=== PATIENT | female | born 1955 | race Caucasian/White ===

== ENCOUNTER 2022-10-21 15:27 | Emergency (ER) | payer MEDICARE, OTHER ==
[~2022-10-21] VITALS: Ht 167.7 cm; Wt 97.5 kg
[2022-10-21] MEDS ORDERED: MECLIZINE 25 MG (ANTIVERT) TAB PO STA (15:38)
[2022-10-21] MEDS ORDERED: NS IV 1000 ML 1,000 ML IV STA (15:38)
[2022-10-21] MEDS ORDERED: ONDANSETRON 4 MG/2 ML (SDV) Z0FRAN IVP STA ×2 (15:38→16:45)
--- NOTE | 2022-10-21 15:44 | ED General ---
General Stated Complaint: DIZZY,VOMITING, LOW FEVER Source of Information: Patient, Spouse History of Present Illness Date Seen by Provider: Oct 21, 2022 Time Seen by Provider: 15:24 Initial Comments 67-year-old female presenting with complaints of cough and cold symptoms for over a week. Yesterday around 3 PM when she was leaving work she started having dizziness. She has a headache in the middle of her head along with dizziness. She was able to drive herself home but has felt the dizziness and symptoms have worsened overnight. She had passed out today and vomited when she tried to eat or drink anything. She gets dizzy with any movement of her head. That she moves her head and gets dizzy she also gets nauseated and has thrown up. She states she has had a low-grade fever around 99 Fahrenheit. She did do a home COVID test that was negative. In the last 1 or 2 days she started coughing up mucus from her lungs. She reports that she feels miserable and has generalized body aches. She has been having chills. She denies pain or burning with urination. No diarrhea. After passing out and feeling so bad today she had her drive her from where they live in [facility] to here in [facility], rather than go to ED and hospital in [place], [place]. She reports having a history of Hypertension and takes Lisinopril/HCTZ for that. She denies allergies to medicines and denies other chronic medical problems. Timing/Duration: 24 Hours Severity: Severe Modifying Factors: worse with Movement Associated Systoms: No Chest Pain; Cough; No Diaphoresis; Fever/Chills, Headaches, Loss of Appetite, Malaise, Nausea/Vomiting; No Rash, No Seizure, No Shortness of Air; Syncope, Weakness Allergies and Home Medications Allergies Coded Allergies: No Known Drug Allergies (Unverified , 10/21/22) Patient Home Medication List Home Medication List Reviewed: Yes Amoxicillin/Potassium Clav (Amox Tr-K Clv 875-125 mg Tab) 875 Mg-125 Mg Tablet, 1 EACH PO BID Prescribed by: PEG MUELLER on 10/21/22 1722 Fluticasone Propionate (Flonase Allergy Relief) 50 Mcg/Actuation [place].susp, 2 SPRAY NS DAILY Prescribed by: PEG MUELLER on 10/21/22 1701 Meclizine HCl (Meclizine HCl) 25 Mg Tablet, 25 MG PO TID PRN for DIZZINESS Prescribed by: PEG GOYALRT on 10/21/22 1701 Ondansetron (Ondansetron Odt) 4 Mg Tab.rapdis, 4 MG PO Q6H PRN for NAUSEA/VOMITING Prescribed by: PEG Osorio ENYART on 10/21/22 1722 Review of Systems Review of Systems Constitutional: see HPI, dizziness EENTM: see HPI, nose congestion Respiratory: see HPI, cough Cardiovascular: see HPI; No chest pain Gastrointestinal: see HPI, nausea, vomiting Genitourinary: see HPI; No dysuria Musculoskeletal: see HPI (Generalized body aches) Skin: No rash Psychiatric/Neurological: See HPI, Anxiety, Headache Hematologic/Lymphatic: Denies Blood Clots Past Lxqqiqc-Xvpkci-Bdobeu Hx Past Medical History Surgery/Hospitalization HX: Hypertension Physical Exam Vital Signs Vital Signs - First Documented 10/21/22 15:27 Temp 36.3 Pulse 73 Resp 14 B/P (MAP) 174/76 (108) Pulse Ox 96 O2 Delivery Room Air Capillary Refill : Height, Weight, BMI Height: '" Weight: lbs. oz. kg; BMI Method: General Appearance: Anxious, Obese Eyes: Bilateral Eye PERRL, Bilateral Eye EOMI (Has fatigable nystagmus with lateral gaze bilaterally) HEENT: PERRL/EOMI, TMs Normal, Pharynx Normal, Moist Mucous Membranes Neck: Full Range of Motion, Normal Inspection, Non Tender, Supple; No Carotid Bruit Respiratory: Chest Non Tender, Lungs Clear, Normal Breath Sounds, No Accessory Muscle Use, No Respiratory Distress Cardiovascular: Regular Rate, Rhythm, No Murmur, Normal Peripheral Pulses Gastrointestinal: Normal Bowel Sounds, No Pulsatile Mass, Non Tender, Soft Rectal: Deferred Extremity: Normal Capillary Refill, Normal Inspection, No Calf Tenderness, No Pedal Edema Neurologic/Psychiatric: Alert, Oriented x3 Skin: Normal Color, Warm/Dry Progress/Results/Core Measures Suspected Sepsis SIRS Temperature: Pulse: Respiratory Rate: Laboratory Tests 10/21/22 15:40: White Blood Count 6.9 Blood Pressure / Mean: Laboratory Tests 10/21/22 15:40: Creatinine 0.66, INR Comment 1.0, Platelet Count 245, Total Bilirubin 0.6 Results/Orders Lab Results Laboratory Tests Test 10/21/22 15:40 10/21/22 15:41 10/21/22 16:50 Range/Units White Blood Count 6.9 4.3-11.0 10^3/uL Red Blood Count 5.19 H 3.80-5.11 10^6/uL Hemoglobin 14.6 11.5-16.0 g/dL Hematocrit 44 35-52 % Mean Corpuscular Volume 84 80-99 fL Mean Corpuscular Hemoglobin 28 25-34 pg Mean Corpuscular Hemoglobin Concent 33 32-36 g/dL Red Cell Distribution Width 12.5 10.0-14.5 % Platelet Count 245 130-400 10^3/uL Mean Platelet Volume 9.3 9.0-12.2 fL Immature Granulocyte % (Auto) 0 % Neutrophils (%) (Auto) 76 H 42-75 % Lymphocytes (%) (Auto) 19 12-44 % Monocytes (%) (Auto) 5 0-12 % Eosinophils (%) (Auto) 1 0-10 % Basophils (%) (Auto) 0 0-10 % Neutrophils # (Auto) 5.2 1.8-7.8 10^3/uL Lymphocytes # (Auto) 1.3 1.0-4.0 10^3/uL Monocytes # (Auto) 0.3 0.0-1.0 10^3/uL Eosinophils # (Auto) 0.0 0.0-0.3 10^3/uL Basophils # (Auto) 0.0 0.0-0.1 10^3/uL Immature Granulocyte # (Auto) 0.0 0.0-0.1 10^3/uL Prothrombin Time 13.6 12.2-14.7 SEC INR Comment 1.0 0.8-1.4 Activated Partial Thromboplast Time 27 24-35 SEC Sodium Level 137 135-145 MMOL/L Potassium Level 4.1 3.6-5.0 MMOL/L Chloride Level 101 98-107 MMOL/L Carbon Dioxide Level 24 21-32 MMOL/L Anion Gap 12 5-14 MMOL/L Blood Urea Nitrogen 12 7-18 MG/DL Creatinine 0.66 0.60-1.30 MG/DL Estimat Glomerular Filtration Rate 97 BUN/Creatinine Ratio 18 Glucose Level 113 H 70-105 MG/DL Calcium Level 9.3 8.5-10.1 MG/DL Corrected Calcium 8.9 8.5-10.1 MG/DL Magnesium Level 2.1 1.6-2.4 MG/DL Total Bilirubin 0.6 0.1-1.0 MG/DL Aspartate Amino Transf (AST/SGOT) 26 5-34 U/L Alanine Aminotransferase (ALT/SGPT) 24 0-55 U/L Alkaline Phosphatase 76 40-136 U/L Troponin I < 0.30 <0.30 NG/ML Pro-B-Type Natriuretic Peptide 185.8 H <125.0 PG/ML Total Protein 7.6 6.4-8.2 GM/DL Albumin 4.5 3.2-4.5 GM/DL Lipase 36 8-78 U/L Serum Alcohol < 10 <10 MG/DL Influenza Type A (RT-PCR) Not Detected Not Detecte Influenza Type B (RT-PCR) Not Detected Not Detecte SARS-CoV-2 RNA (RT-PCR) Not Detected Not Detecte Urine Color YELLOW Urine Clarity SL CLOUDY Urine pH 6.0 5-9 Urine Specific [place] 1.020 1.016-1.022 Urine Protein NEGATIVE NEGATIVE Urine Glucose (UA) NEGATIVE NEGATIVE Urine Ketones 1+ H NEGATIVE Urine Nitrite POSITIVE H NEGATIVE Urine Bilirubin NEGATIVE NEGATIVE Urine Urobilinogen 0.2 < = 1.0 MG/DL Urine Leukocyte Esterase TRACE H NEGATIVE Urine RBC (Auto) TRACE-I H NEGATIVE Urine RBC RARE /HPF Urine WBC 5-10 H /HPF Urine Squamous Epithelial Cells 2-5 /HPF Urine Crystals NONE /LPF Urine Bacteria LARGE H /HPF Urine Casts NONE /LPF Urine Mucus SMALL H /LPF Urine Culture Indicated YES Urine Opiates Screen NEGATIVE NEGATIVE Urine Oxycodone Screen NEGATIVE NEGATIVE Urine Methadone Screen NEGATIVE NEGATIVE Urine Propoxyphene Screen NEGATIVE NEGATIVE Urine Barbiturates Screen NEGATIVE NEGATIVE Ur Tricyclic Antidepressants Screen NEGATIVE NEGATIVE Urine Phencyclidine Screen NEGATIVE NEGATIVE Urine Amphetamines Screen NEGATIVE NEGATIVE Urine Methamphetamines Screen NEGATIVE NEGATIVE Urine Benzodiazepines Screen NEGATIVE NEGATIVE Urine Cocaine Screen NEGATIVE NEGATIVE Urine Cannabinoids Screen NEGATIVE NEGATIVE My Orders Orders - PEG MUELLER MD Cbc With Automated Diff (10/21/22 15:35) Magnesium (10/21/22 15:35) Chest 1 View Ap/Pa Only (10/21/22 15:35) Ekg Tracing (10/21/22 15:35) Comprehensive Metabolic Panel (10/21/22 15:35) Protime With Inr (10/21/22 15:35) Partial Thromboplastin Time (10/21/22 15:35) O2 (10/21/22 15:35) Monitor-Rhythm Ecg Trace Only (10/21/22 15:35) Ed Iv/Invasive Line Start (10/21/22 15:35) Lipase (10/21/22 15:35) Troponin I Fs (10/21/22 15:35) Probnp Fs (10/21/22 15:35) Ua Culture If Indicated (10/21/22 15:35) Alcohol (10/21/22 15:35) Drug Screen Stat (Urine) (10/21/22 15:35) Covid 19 Inhouse Test (10/21/22 15:35) Ct Head/Sinuses Wo (10/21/22 15:35) Influenza A And B By Pcr (10/21/22 15:35) Isolation Central Supply Req (10/21/22 15:35) Ns Iv 1000 Ml (Sodium Chloride 0.9%) (10/21/22 15:38) Meclizine Tablet (Antivert Tablet) (10/21/22 15:38) Ondansetron Injection (Zofran Injectio (10/21/22 15:38) Ondansetron Injection (Zofran Injectio (10/21/22 16:45) Lorazepam Injection (Ativan Injection) (10/21/22 16:45) Urine Culture (10/21/22 16:50) Ceftriaxone 1 Gm Pre-Mix (Rocephin 1 Gm (10/21/22 17:09) Vital Signs/I&O 10/21/22 15:27 Temp 36.3 Pulse 73 Resp 14 B/P (MAP) 174/76 (108) Pulse Ox 96 O2 Delivery Room Air Capillary Refill : Progress Note #1: Progress Note Potential life-threatening diagnosis of intracranial hemorrhage, intracranial mass, stroke, sepsis, sinusitis, labyrinthitis, migraine. Obtain electrocardiogram to evaluate patient's heart rate and rhythm. Placed on cardiac teletypesetter monitor and initially it shows a sinus rhythm with a heart rate in the 70s. Her oxygen saturation was 97 to 99% on room air. Her blood pressure was slightly elevated at 158/65. She had fatigable nystagmus with lateral gaze bilaterally. We will obtain peripheral IV access for administering normal saline 1 L IV fluid bolus for hydration. Give Zofran 4 mg IV for nausea and vomiting. Meclizine 25 mg p.o. to try and help with dizziness and vertigo symptoms. Send blood work for complete blood count, comprehensive metabolic profile, clotting factors, cardiac enzymes, lipase, magnesium. Urinalysis to check for signs of infection and look at her hydration status. Urine drug screen and alcohol levels to look for signs of drug or alcohol abuse that might be contributing to her symptoms. Nasal swab to check for COVID and influenza. CT of her head and sinuses to look for pathology causing her dizziness and headache. Progress Note #2: Time: 16:44 Progress Note Complete blood count did not show an elevated white blood cell count as it was coming back at 6.9. Her hemoglobin was okay at 14.6 and not showing anemia. In terms of her comprehensive metabolic profile her troponin was less than 0.3 which would be negative especially considering her symptoms started yesterday at 3 PM. Her coagulation factors are normal and not showing coagulopathy. Her alcohol level is less than 10 so it is 0. She had no acute significant abnormality on her comprehensive metabolic profile otherwise to indicate a source for her symptoms such as renal failure, hepatic failure, pancreatitis with elevated lipase. Her lipase was normal at 46. Her nasal swab to check for COVID and influenza was negative as well. On my review and personal interpretation of her 1 view chest x-ray she had no acute infiltrate or effusion. On my review and personal interpretation of her CT head and sinuses without contrast I did not appreciate any acute intracranial hemorrhage or mass. When reviewing results with the patient she stated that she was feeling a little bit better was able to turn her head and open her eyes to look at me when I was speaking with her. However she does note that she was getting nauseated and dizzy again since she had to lay flat for the CT scan. Will order an additional dose of Ondansetron 4 mg IV for nausea and Lorazepam 0.5 mg IV for dizziness and vertigo symptoms. Progress Note #3: Progress Note 1651 I reviewed the radiologist report on the CT head and sinuses without IV contrast. They reported that they did not see any intracranial process but she did have air-fluid levels in her maxillary sphenoid and ethmoid sinuses to go along with the diagnosis of sinusitis. Progress Note #4: Time: 17:01 Progress Note I reviewed the radiologist report on the 1 view chest x-ray and they did not see any acute process. Urine drug screen negative for illicit substances to help rule out other reasons for her to be having acute onset of dizziness with n/v. Urinalysis was positive for Nitrites and Leukocyte esterace with bacteria and WBC, so will treat for UTI as well. Give Rocephin 1 gm IV here in ED to help with UTI and sinusitis. Will review with the patient that her imaging did not show acute pneumonia but she did have sinusitis and maxillary, ethmoid, sphenoid sinuses. We will try treating with nasal steroid spray, such as Flonase 2 sprays in each nostril daily, to help with swelling and drainage from her sinuses. Continue with meclizine 25 mg 3 times daily for her vertigo and dizziness symptoms. She could use [id number] Mucinex to help thin out secretions and cough. Stay well- hydrated and drink plenty of fluids. We will treat with an antibiotic such as Augmentin for her sinusitis and UTI. Zofran 4 mg ODT q 6 hours as needed for nausea and vomiting. Encouraged to follow-up with the clinic if not seeing improvement. I did not appreciate any acute findings that would warrant or necessitate emergent admit to the hospital based on her labs and imaging. On physical exam she was having improved symptoms with treatment in the ED and has had no emesis here. Will continue with medicines as above and discharge to home. Counseled on follow up and return precautions. She did report improved symptoms with the repeat dose of Zofran 4 mg IV and Ativan 0.5 mg IV for her dizziness and nausea that worsened again after she returned from CT. ECG Initial ECG Impression Date: Oct 21, 2022 Initial ECG Impression Time: 15:49 Initial ECG Rate: 63 Initial ECG Rhythm: Normal Sinus Initial ECG Comparisson: No Previous ECG Available Comment Based on my personal interpretation and review she has an electrocardiogram showing normal sinus rhythm with a heart rate of 63 bpm. IL interval [address] elevation. QT interval 413 ms with a QTc interval 420 ms. She has low voltage QRS complex. There is no prior tracing available for comparison. Diagnostic Imaging Diagonstic Imaging: CT Plain Films/CT/US/NM/MRI: head (and sinuses) Comments NAME: DIPIKA LAFLEUR [facility] REC#: [id number] PT STATUS: REG ER : 1955 PHYSICIAN: PEG MUELLER MD ADMIT DATE: 10/21/22/ER FS Signed Date of Exam:10/21/22 CT HEAD/SINUSES WO PROCEDURE: CT head without contrast and CT sinuses with contrast. TECHNIQUE: Routine noncontrast CT images were obtained through the head and sinuses. Coronal reformats of the sinuses were also performed and reviewed. Auto Exposure Controls were utilized during the CT exam to meet ALARA standards for radiation dose reduction. INDICATION: Headache, syncope COMPARISON: None FINDINGS: The mustafa-white matter differentiation is preserved. No acute intracranial hemorrhage. No intracranial mass or fluid collection. No midline shift or mass effect. The ventricles and cortical sulci are normal. The basilar cisterns are patent. The paranasal sinuses demonstrate bilateral air-fluid levels within the maxillary sinuses, ethmoid sinuses, sphenoid sinuses. No mucoperiosteal thickening or bony erosion. IMPRESSION: No acute intracranial hemorrhage. No large vascular territory hyde-white loss. No intracranial mass, midline shift, or hydrocephalus. Air-fluid levels within the bilateral maxillary , sphenoid, and sinuses demonstrate for sinusitis. Dictated by: Dictated on workstation # [id number] Dict: 10/21/22 164 Trans: 10/21/221647 [facility] [place] [id number] Interpreted by: PATEL KLEIN DO Electronically signed by: PATEL KLEIN DO 10/21/221647 Reviewed: Reviewed by Me (I reviewed radiologist report at 1651) Diagonstic Imaging: Xray Plain Films/CT/US/NM/MRI: chest Comments NAME: DIPIKA LAFLEUR [facility] REC#: [id number] PT STATUS: REG ER : 1955 PHYSICIAN: PEG MUELLER MD ADMIT DATE: 10/21/22/ER FS Draft Date of Exam:10/21/22 CHEST 1 VIEW AP/PA ONLY EXAM: CHEST 1 VIEW AP/PA ONLY INDICATION: Cough. Syncope. COMPARISON: None. FINDINGS: Normal heart size and central pulmonary vascularity. Lungs are clear. No pleural effusion or pneumothorax. No acute osseous findings. IMPRESSION: No acute cardiopulmonary findings. Dictated on workstation # [id number] Dict: 10/21/22 1649 Trans: 10/21/22 1653 [id number] [id number] Interpreted by: SARA WIN MD Electronically signed by: Reviewed: Reviewed by Me (I reviewed radiologist report of 1 view chest xray at 1701. They did not see any acute process. ) Departure Impression Primary Impression: Vertigo Additional Impressions: Syncope Qualified Codes: R55 - Syncope and collapse Maxillary sinusitis, acute Qualified Codes: J01.00 - Acute maxillary sinusitis, unspecified Acute ethmoidal sinusitis Qualified Codes: J01.20 - Acute ethmoidal sinusitis, unspecified Acute sphenoidal sinusitis Qualified Codes: J01.30 - Acute sphenoidal sinusitis, unspecified Acute cystitis without hematuria Disposition: HOME, SELF-CARE Condition: Improved Departure-Patient Inst. Decision time for Depature: 17:21 [place]: [facility] [place]ructions: Vertigo ED, Fainting, Adult ED, Dizziness, Adult ED, Sinusitis, Adult ED, Urinary Tract Infection, Adult ED Add. Discharge Instructions: Try to stay well hydrated and drink plenty of water and electrolyte drinks to help with your hydration. Use nasal steroid spray to help with sinus pressure and congestion from your sinusitis. Take antibiotic to treat for sinusitis. Use Meclizine 25 mg three times a day as needed for vertigo and dizziness symptoms. Follow up with clinic for continued concerns. Scripts Amoxicillin/Potassium Clav (Amox Tr-K Clv 875-125 mg Tab) 875 Mg-125 Mg Tablet 1 EACH PO BID for UTI/Sinusitis for 10 Days, #20 TAB 0 Refills Prov: PEG MUELLER MD 10/21/22 Ondansetron (Ondansetron Odt) 4 Mg Tab.rapdis 4 MG PO Q6H PRN for NAUSEA/VOMITING for 5 Days, #20 TAB 0 Refills Prov: PEG MUELLER MD 10/21/22 Fluticasone Propionate (Flonase Allergy Relief) 50 Mcg/Actuation [place].susp 2 SPRAY NS DAILY for sinusitis for 15 Days, #1 EACH 0 Refills 2 SPRAYS PER NOSTRIL DAILY X 2 DAYS THEN 1 SPRAY DAILY Prov: PEG MUELLER MD 10/21/22 Meclizine HCl (Meclizine HCl) 25 Mg Tablet 25 MG PO TID PRN for DIZZINESS for 10 Days, #30 TAB 0 Refills Prov: PEG MUELLER MD 10/21/22 Work/School Note: Work Release Form Date Seen in the Emergency Department: Oct 21, 2022 Return to Work: Oct 23, 2022 Restrictions: Return-No Vomiting(24hrs) PEG MUELLER MD Oct 21, 2022 15:44
[2022-10-21 15:53] LABS: BASOPHILS % (AUTO) 0 % (0-10); EOSINOPHILS % (AUTO) 1 % (0-10); HEMATOCRIT 44 % (35-52); HEMOGLOBIN 14.6 g/dL (11.5-16.0); LYMPHOCYTES # (AUTO) 1.3 10^3/uL (1.0-4.0); LYMPHOCYTES % (AUTO) 19 % (12-44); MEAN CORPUSCULAR HEMOGLOBIN 28 pg (25-34); MEAN CORPUSCULAR HGB CONC 33 g/dL (32-36); MEAN CORPUSCULAR VOLUME 84 fL (80-99); MEAN PLATELET VOLUME 9.3 fL (9.0-12.2); MONOCYTES # (AUTO) 0.3 10^3/uL (0.0-1.0); MONOCYTES % (AUTO) 5 % (0-12); NEUTROPHILS # (AUTO) 5.2 10^3/uL (1.8-7.8); NEUTROPHILS % (AUTO) 76 % (42-75); PLATELET COUNT 245 10^3/uL (130-400); WHITE BLOOD COUNT 6.9 10^3/uL (4.3-11.0)
[2022-10-21 16:10] LABS: PROTHROMBIN TIME PATIENT 13.6 SEC (12.2-14.7)
[2022-10-21 16:19] LABS: BUN/CREATININE RATIO 18; CARBON DIOXIDE 24 MMOL/L (21-32); CHLORIDE 101 MMOL/L (98-107); CREATININE SERUM 0.66 MG/DL (0.60-1.30); GFR ESTIMATED 97; POTASSIUM 4.1 MMOL/L (3.6-5.0); SODIUM 137 MMOL/L (135-145)
[2022-10-21 16:20] LABS: ALANINE AMINOTRANSFERASE 24 U/L (0-55); ALBUMIN 4.5 GM/DL (3.2-4.5); ALKALINE PHOSPHATASE 76 U/L (40-136); BILIRUBIN,TOTAL 0.6 MG/DL (0.1-1.0); CALCIUM 9.3 MG/DL (8.5-10.1); GLUCOSE 113 MG/DL (70-105); LIPASE 36 U/L (8-78); MAGNESIUM 2.1 MG/DL (1.6-2.4); TOTAL PROTEIN 7.6 GM/DL (6.4-8.2)
[2022-10-21] MEDS ORDERED: LORazepam INJ 2 MG/ML (ATIVAN) VIAL IVP STA (16:45)
--- NOTE | 2022-10-21 16:49 | Diagnostic Imaging Report ---
PROCEDURE: CT head without contrast and CT sinuses with contrast. TECHNIQUE: Routine noncontrast CT images were obtained through the head and sinuses. Coronal reformats of the sinuses were also performed and reviewed. Auto Exposure Controls were utilized during the CT exam to meet ALARA standards for radiation dose reduction. INDICATION: Headache, syncope COMPARISON: None FINDINGS: The mustafa-white matter differentiation is preserved. No acute intracranial hemorrhage. No intracranial mass or fluid collection. No midline shift or mass effect. The ventricles and cortical sulci are normal. The basilar cisterns are patent. The paranasal sinuses demonstrate bilateral air-fluid levels within the maxillary sinuses, ethmoid sinuses, sphenoid sinuses. No mucoperiosteal thickening or bony erosion. IMPRESSION: No acute intracranial hemorrhage. No large vascular territory hyde-white loss. No intracranial mass, midline shift, or hydrocephalus. Air-fluid levels within the bilateral maxillary , sphenoid, and sinuses demonstrate for sinusitis. Dictated by: Dictated on workstation # [id number]
--- NOTE | 2022-10-21 16:53 | Diagnostic Imaging Report ---
EXAM: CHEST 1 VIEW AP/PA ONLY INDICATION: Cough. Syncope. COMPARISON: None. FINDINGS: Normal heart size and central pulmonary vascularity. Lungs are clear. No pleural effusion or pneumothorax. No acute osseous findings. IMPRESSION: No acute cardiopulmonary findings. Dictated by: Dictated on workstation # [id number]
[2022-10-21 16:54] LABS: BILIRUBIN,URINE NEGATIVE (NEGATIVE); COLOR,URINE YELLOW; GLUCOSE, URINE (UA) NEGATIVE (NEGATIVE); KETONES,URINE 1+ (NEGATIVE); LEUKOCYTE ESTERASE ,URINE TRACE (NEGATIVE); NITRITE,URINE POSITIVE (NEGATIVE); PROTEIN,URINE NEGATIVE (NEGATIVE)
[2022-10-21 16:59] LABS: BACTERIA,URINE LARGE /HPF; CLARITY,URINE SL CLOUDY; RBC,URINE RARE /HPF
[2022-10-21] MEDS ORDERED: MECL-149 PO (17:01)
[2022-10-21] MEDS ORDERED: FLUT9.9S NS (17:01)
[2022-10-21 17:02] LABS: AMPHETAMINE SCREEN, URINE NEGATIVE (NEGATIVE); BARBITURATE SCREEN URINE NEGATIVE (NEGATIVE); BENZODIAZEPINES SCREEN URINE NEGATIVE (NEGATIVE); CANNABINOID SCREEN, URINE NEGATIVE (NEGATIVE); COCAINE SCREEN URINE NEGATIVE (NEGATIVE); METHADONE STAT NEGATIVE (NEGATIVE); OPIATE SCREEN URINE NEGATIVE (NEGATIVE); OXYCODONE STAT NEGATIVE (NEGATIVE); PROPOXYPHENE STAT NEGATIVE (NEGATIVE); TRICYCLIC ANTIDEPRESSANTS SCRE NEGATIVE (NEGATIVE)
[2022-10-21] MEDS ORDERED: cefTRIAXone 1 GM PRE-MIX 50 ML IV STA (17:09)
[2022-10-21] MEDS ORDERED: AMOX1TAB12 PO (17:22)
[2022-10-21] MEDS ORDERED: ONDA4TAB11 PO (17:22)
[2022-10-21 17:25] VITALS: BP 139/59
== END 2022-10-21 17:26 | disposition home or self-care (01) ==
LOC: ER FS 15:33
DX: J01.00 Acute maxillary sinusitis, unspecified (principal); J01.20 Acute ethmoidal sinusitis, unspecified; J01.30 Acute sphenoidal sinusitis, unspecified; N30.00 Acute cystitis without hematuria; R55 Syncope and collapse; I10 Essential (primary) hypertension; Z79.899 Other long term (current) drug therapy; Z20.822 Contact with and (suspected) exposure to COVID-19
CPT/HCPCS: 36415; 70450; 70486; 71045; 80053; 80306; 81000; 83690; 83735; 83880; 84484; 85025; 85610; 85730; 87077; 87088; 87186; 87636; 93005; 93041; 99284; G0480; 80320